=== PATIENT | male | born 1960 | race Caucasian/White ===

== ENCOUNTER 2020-10-10 15:49 | Inpatient (IN) | payer OTHER ==
[~2020-10-10] VITALS: Ht 182.9 cm; Wt 93.0 kg
[2020-10-10 15:53] VITALS: BP 105/78
--- NOTE | 2020-10-10 17:39 | NUR ---
LAB CALLED BLOOD RESULTS HAVE NOT BEEN REC'D IN YET AND THEY WERE SENT 40 MINUTES AGO. LAB STATES THEY HAVE REC'D IT IN AND WILL PROCESS IT.
[2020-10-10 17:52] LABS: ABSOLUTE NEUTROPHILS 9.8 thou/uL (1.4-8.2); BASOPHILS 0.5 % (0.0-2.0); EOSINOPHILS 0.1 % (0.0-3.0); HEMATOCRIT 37.2 % (42.0-52.0); HEMOGLOBIN 12.2 gm/dL (14.0-18.0); LYMPHOCYTES 1.4 % (24.0-44.0); MCH 28.5 pg (26.0-34.0); MCHC 32.9 g/dL (28.0-37.0); MCV 86.6 fL (80.0-100.0); RBC 4.29 mil/uL (4.50-6.00); RDW 14.6 % (10.5-14.5); WBC 10.2 thou/uL (4.0-11.0)
[2020-10-10 17:58] LABS: CALCIUM 9.5 mg/dL (8.5-10.1); POTASSIUM 3.7 mmol/L (3.5-5.1)
[2020-10-10 18:02] LABS: MAGNESIUM 1.6 mg/dL (1.8-2.4)
[2020-10-10 18:04] LABS: ALBUMIN 2.7 g/dL (3.4-5.0); DIRECT BILIRUBIN 1.1 mg/dL (<0.1-0.2)
[2020-10-10 18:20] LABS: PLATELET COUNT 88 thou/uL (150-400)
[2020-10-10 18:56] LABS: URINE BILIRUBIN NEGATIVE (Negative); URINE BLOOD TRACE (Negative); URINE CLARITY CLEAR; URINE COLOR YELLOW; URINE GLUCOSE-RANDOM* NEGATIVE (Negative); URINE KETONES NEGATIVE (Negative); URINE LEUKOCYTES-REFLEX TRACE (Negative); URINE NITRITE-REFLEX NEGATIVE (Negative); URINE PROTEIN (DIPSTICK) NEGATIVE (Negative)
[2020-10-10] MEDS ORDERED: HYDROCODON-ACE1 EAC7 PO (19:45)
[2020-10-10] MEDS ORDERED: CARBIDOPA-LEVO1 EAC9 PO (19:46)
[2020-10-10] MEDS ORDERED: ONDANSETRON HCL8 MG PO (19:47)
[2020-10-10] MEDS ORDERED: STIVARGA40 MG PO (19:49)
[2020-10-10] MEDS ORDERED: METOPROLOL SUCC25 M1 PO (19:49)
--- NOTE | 2020-10-10 21:10 | NUR ---
PT TRANSFER FROM ER ROOM 3 TO ER ROOM 4 SO THERE IS ROOM WITH A DOOR D/T BEING A PUI R/O
--- NOTE | 2020-10-10 21:33 | NUR ---
STEPHANY PRECIPITATOR OPERATOR AT BEDSIDE
[2020-10-11 06:16] LABS: HEMOGLOBIN 11.4 gm/dL (14.0-18.0); MCH 29.6 pg (26.0-34.0); MCHC 34.5 g/dL (28.0-37.0); MCV 85.8 fL (80.0-100.0); RBC 3.85 mil/uL (4.50-6.00); RDW 14.7 % (10.5-14.5); WBC 6.5 thou/uL (4.0-11.0)
--- NOTE | 2020-10-11 06:22 | NUR ---
Gave son an update pt's condition
[2020-10-11 06:23] LABS: MAGNESIUM 1.7 mg/dL (1.8-2.4); POTASSIUM 3.9 mmol/L (3.5-5.1)
--- NOTE | 2020-10-11 07:06 | EKG ---
[facility] [place] [address] ELECTROCARDIOGRAM REPORT Name: GABY BRENNAN Room #: 170-4 ADM IN M.R.#: [id number] Admission: 10/10/20 Attend Phys: Ivan Arias Discharge: Date of : 58 Report #: [id number] THIS REPORT FOR: cc: JULITO - Family physician unknown FAM - Family physician unknown Pablo Ny MD [facility] THIS REPORT FOR: //name// [facility] ED Test Date: 2020-10-10 Test Time: 16:16:36 Pat Name: GABY BRENNAN Department: Room: [facility] Gender: M [employer] Guard: : 1960 Requested By: Marilou Padilla Order Number: [id number] MD: Pablo Ny Measurements Intervals [place]ell Rate: 120 P: 44 NM: 146 QRS: -15 QRSD: 83 T: 72 QT: 288 QTc: 407 Interpretive Statements Sinus tachycardia Baseline wander in lead(s) V3 Compared to ECG 07/11/1997 08:25:00 Sinus rhythm no longer present Electronically Signed On 10-11-2020 7:06:34 SOLAR SYSTEM DESIGNER by Pablo Ny [email or web address] <ELECTRONICALLY SIGNED> By: Pablo Ny MD, FACC 10/11/20 0706 15 Pablo Ny MD, FACC /EPI
[2020-10-11 09:15] LABS: INR 1.2; PROTIME 12.2 Seconds (9.3-11.4)
[2020-10-11 11:33] VITALS: BP 158/88
--- NOTE | 2020-10-11 11:43 | NUR ---
ATTEMPTED TO CALL REPORT, WAS ADVISED THE NURSE WILL HAVE TO CB
[2020-10-11 11:44] VITALS: BP 141/82
[2020-10-11 12:32] VITALS: BP 164/119
[2020-10-11 15:01] VITALS: BP 133/83
[2020-10-11 20:00] VITALS: BP 155/84
[2020-10-12] VITALS (9 sets, daily range): BP systolic 132–155; BP diastolic 76–98
--- NOTE | 2020-10-12 03:07 | NUR ---
ASSUMED PATIENT CARE AT 1845. VITAL SIGNS STABLE WITH PATIENT HAVING NO COMPLAINTS OF PAIN OR NAUSEA. FULLY ORIENTED, PATIENT IS ABLE TO CALL APPROPRIATELY FOR NEEDS. BREATHING STABLE ON ROOM AIR EVIDENCED BY ASSESSMENTS AND SPOT OXYGENATION CHECKS. LARGE OUTPUT THROUGH COLOSTOMY AND FECAL INCONTINENCE. DECENT OUTPUT THROUGH EXTERNAL CATHETER. WOUND AND SKIN CARE PROVIDED WITH PATIENT TURNED FREQUENTLY AND BARRIER CREAM APPLICATION. SWALLOW PRECAUTIONS FOLLOWED. CONTINUE PLAN OF CARE.
[2020-10-12 05:45] LABS: HEMATOCRIT 31.5 % (42.0-52.0); HEMOGLOBIN 10.6 gm/dL (14.0-18.0); MCH 28.9 pg (26.0-34.0); MCHC 33.6 g/dL (28.0-37.0); MCV 86.1 fL (80.0-100.0); RBC 3.66 mil/uL (4.50-6.00); RDW 14.7 % (10.5-14.5); WBC 3.9 thou/uL (4.0-11.0)
[2020-10-12 06:40] LABS: CALCIUM 8.7 mg/dL (8.5-10.1); CREATININE 0.8 mg/dL (0.7-1.3); POTASSIUM 3.6 mmol/L (3.5-5.1)
--- NOTE | 2020-10-12 17:48 | NUR ---
PT CARE ASSUMED AT 0700. ASSESSMENTS CHARTED. MEDICATION CHARTED. LAC IV. CONDOM CATHETER. COLOSTOMY. PT STILL HAS MUCOUS EXPELLING FROM ANUS ON OCCASSION. PT REQUIRES FEEDING. PARKINSONS WITH MILD TREMORS.
[2020-10-13 04:20] VITALS: BP 154/90
--- NOTE | 2020-10-13 07:52 | NUR ---
PT ALERT AND ORIENTED. NO CONCERNS OVERNIGHT. NO FEVER, NO NAUSEA , SOB OR CHEST PAIN. WILL CONTINUE TO MONITOR . LIQUID STOOL FROM COLOSTOMY. WILL FOLLOW POC
[2020-10-13 08:49] VITALS: BP 153/93
--- NOTE | 2020-10-13 11:53 | NUR ---
ASSESSMENT-PT SAY HE LIVES WITH HIS SISTER IN A 2 STORY HOME. PT SAYS HE WAS WALKING ON HIS OWN AND GOING UP/DOWN THE STEPS TO BEDROOM. PT HAS A ROLLER WALKER BUT HE SAYS HE WAS NOT USING IT. PT HAS A TUB/SHOWER AND SON ASSISTS WITH HIS SHOWER. PT SAYS HE HAS NOT BEEN TO ANY REHAB AND HAS NOT HAD ANY HH SERVICES IN THE PAST. PT'S PCP IS DR LAUREN LEO. PT ALSO HAS A DTR IN THE AREA. THERAPIES ARE WORKING WITH PT AND CydneyN EMY HAS BEEN REQUESTED. FOLLOWING TO ASSIST WITH DC PLANNING.
[2020-10-13 12:14] VITALS: BP 144/82
--- NOTE | 2020-10-13 16:37 | NUR ---
I have reviewed the documentation by JYOTI CUELLAR from 10/13/20 to 10/13/20 and I concur with it. NOHEMI PATEL, PT, DPT
--- NOTE | 2020-10-13 17:12 | NUR ---
ASSUMMED PT CARE AT APPROXIMATELY 0700. PT A&O X4. ASSESSMENT CHARTED. FALL PRECAUTIONS IN PLACE. PT DENIES HAVING CHEST PAIN. PT DENIES HAVING SOB. PT STATED HE HAD L SHOULDER PAIN. PT RECEIVED ANALGESICS. PT STATED ANALGESICS HELPED RELIEVE PAIN. VITAL SIGNS STABLE. EDUCATED PT FAMILY AND PT ABOUT POC. PT AND PT'S FAMILY STATED UNDERSTANDING AND DENIED HAVING FURTHER QUESTIONS. PT COMFORTABLE. PT DENIES HAVING FURTHER CONCERNS. ENCOURAGED PT TO USE UTENSILS FOR MEALS. PT IS WEAK. ASSISTANCE NEEDED WITH MEALS.
[2020-10-13 17:50] VITALS: BP 140/82
[2020-10-13 20:00] VITALS: BP 154/88
[2020-10-14] VITALS (8 sets, daily range): BP systolic 138–152; BP diastolic 79–85
--- NOTE | 2020-10-14 03:36 | NUR ---
Pt. rested quietly during the night when checked on during frequent rounds. He offers no c/o pain. Colostomy bag is patent. Pt. turned and repositioned. Bed alarm is on.
--- NOTE | 2020-10-14 17:53 | NUR ---
PT CARE ASSUMED AT 0700. ASSESSMENTS CHARTED. MEDICATION CHARTED. LAC IV. CONDOM CATHETER. COLOSTOMY BAG; FIRM STOOLS LG AMOUNT OF GAS. LIDOCAINE PATCH ON LT SHOULDER. PT IS CAPABLE OF FEEDING SELF NOW. SPENT TIME UP IN CHAIR AND TRANSFERRED BACK TO BED WELL.
--- NOTE | 2020-10-15 04:53 | NUR ---
ASSUMED CARE OF PT AT 1900HR. PT AOX3-4 AND LETS NEEDS BE KNOWN. FALL PRECAUTION IN PLACE. PT TURNED Q2-3H. ABX TREATMENT CONTINUED. CONDOM CATH IN PLACE AND IS PATIENT. PT DENIES PAIN, NAUSEA OR SOA. ASSESSMENT CHARTED. PT RUNS SR ON TELE. PT WAS ABLE TO GET COMFORTABLE AND SLEEP PART OF THE SHIFT. VSS AND NO S/S OF ACUTE DISTRESS. WILL CONTINUE TO MONITOR.
[2020-10-15 05:00] VITALS: BP 141/79
[2020-10-15 05:10] LABS: HEMATOCRIT 32.4 % (42.0-52.0); HEMOGLOBIN 10.8 gm/dL (14.0-18.0); MCH 28.7 pg (26.0-34.0); MCHC 33.4 g/dL (28.0-37.0); MCV 85.8 fL (80.0-100.0); RBC 3.78 mil/uL (4.50-6.00); WBC 3.7 thou/uL (4.0-11.0)
[2020-10-15 05:25] LABS: CALCIUM 9.1 mg/dL (8.5-10.1); CREATININE 0.7 mg/dL (0.7-1.3); POTASSIUM 3.7 mmol/L (3.5-5.1)
[2020-10-15 08:20] VITALS: BP 139/97
[2020-10-15 11:33] VITALS: BP 151/83
[2020-10-15 15:10] VITALS: BP 142/79
--- NOTE | 2020-10-15 20:07 | NUR ---
ASSUMED CARE AT CHANGE OF SHIFT. ALERTX3 FROM HOME WIHT SISTER. HX OF THONG. DENIES SOB, DENIES CHEST PAIN. PAIN TO LEFT ARM WITH LIDOCAIN PATCH IN PLACE. CONDUM CATH AND COLOSTOMY IN PLACE. TAKES PILLS CRUSHED IN PUDDING. USES ROLLING WALKER AT HOME. AX1 WITH WALKER/GATE BELT. PROGRESSING TOWARDS GOALS. WILL DC TO RAHAB FRIDAY.
[2020-10-15 20:08] VITALS: BP 147/93
[2020-10-16 03:11] VITALS: BP 169/86
--- NOTE | 2020-10-16 04:32 | NUR ---
PATIENT AOX4 MAKES NEEDS KNOWN. PATIENT HAS A COLOSTOMY BAG, STOMA IS PINK AND MOIST. PATIENT ENCOURAGED FLUIDS.FALL PRECAUTION IN PLACE. PATIENT IN BED ASLEEP AT THIS TIME BREATHING REGULAR AND UNLABOURED.
[2020-10-16 07:37] VITALS: BP 146/88
--- NOTE | 2020-10-16 08:04 | NUR ---
PATIENT SEEN FOR REHAB CONSULT BY ANTWON MAGAÑA NP WITH DR. BOB, ON OCT 13. PATIENT IS A CANDIDATE FOR ACUTE REHAB/5N. IF PATIENT IS WANTING TO COME TO 5N, AUTH CAN BE REQUESTED WHEN MEDICALLY READY. THANK YOU FOR THIS REFERRAL.
[2020-10-16 08:05] VITALS: BP 139/79; BP 146/88
--- NOTE | 2020-10-16 10:33 | NUR ---
WOUND/OSTOMY NOTE; PT ALERT, COOPERATIVE, STATES HE DID NOT BRING OSTOMY SUPPLIES TO HOSP, COLOSTOMY POUCH W/ LOOSE EDGES, ON X 4 DAYS, CHANGED USING 2 PIECE AKIL SYSTEM CUT TO FIT, STOMA PINK VIABLE BUDDED W/ SOFT FORMED STOOL NOTED, BILAT BUTTOCKS WOUND, R ~2CM X 2CM X .3CM D, L BUTTOCKS AREA PINK, HEALING, ZGUARD APPLIED, PT STATES HE STILL HAS MUCOUS TYPE DRAINAGE FROM RECTUM PERIODICALLY, RECOMMEND TO KEEP AREA CLEAN, PROTECTIVE CREAM PRN, SUPPLIES PLACE AT , ABLE TO MOVE SELF IN BED, POSSIBLE TRANSFER TO [address] [place], [place] [address]AB TODAY, ENCOURAGED TO NOT SIT LONG PERIODS RECOMMENDATIONS; AKIL CUT TO FIT APPLIANCE, CHANGE Q3-5 DAYS AND PRN, ZGUARD BID TO BUTTOCKS AREA, OFF LOADING, PRESSURE RELIEF FLOOR COVERER APPRENTICE AWARE RECOMMENDATIONS;
[2020-10-16 12:00] VITALS: BP 139/79
--- NOTE | 2020-10-16 13:14 | NUR ---
I have reviewed the documentation by JYOTI CUELLAR from 10/16/20 to 10/16/20 and I concur with it. NOHEMI PATEL, PT, DPT
--- NOTE | 2020-10-16 15:03 | NUR ---
Patient evaled for 5N and accepted. Updated son Cornell who is in agreement with plan. Patient agreeable.
--- NOTE | 2020-10-16 16:11 | NUR ---
PATIENT SEEN BY PATIENT CARE LIAISON AND VERBAL AND WRITTEN INFORMATION SHARED ABOUT ACUTE REHAB. SON, WILNER, CALLED FOR BRINGING CLOTHING FOR REHAB STAY AND LIST OF ITEMS ALONG WITH LIAISON'S CARD WAS TEXTED TO SON. PATIENT TO ADMIT THIS AFTERNOON.
--- NOTE | 2020-10-16 18:37 | NUR ---
PT CARE ASSUMED AT 0700. ASSESSMENTS CHARTED. MEDICATION CHARTED. LAC IV. CONDOM CATHETER. COLOSTOMY. WOUND RT BUTTOCKS; Z-GUARD. PARKINSON'S; MILD TREMORS. PT DISCHARGED TO REHAB-5N. TELEMETRY D/C'D. IV D/C'D.
--- NOTE | 2020-10-17 08:07 | HC ---
[facility] [place] [address] [place] [address] CONSULTATION Name: GABY BRENNAN Room #: 209-P [facility] IN .R.#: [id number] Admission: 10/10/20 Attend Phys: Eugeneedwin Fernando Lorilarisa Discharge: 10/16/20 Date of : 58 Report #: [id number] THIS REPORT FOR: cc: FAM - Family physician unknown FAM - Family physician unknown Vargas Delacruz MD ~ DATE OF SERVICE: 10/11/2020 REASON FOR CONSULTATION: Metastatic colorectal cancer. HISTORY OF PRESENT ILLNESS: The patient is a 60-year-old male, not a good historian, who has a history of colorectal cancer diagnosed last year. He initially had a diverting colostomy and then in the past received FOLFOX and FOLFIRI chemotherapy, recently he has had several days of Stivarga. He was brought to the hospital, reported by family member for fever of 103 the evening before, also recent nausea and vomiting and diarrhea and also macular rash. At this time in the hospital, the patient does not really have a headache, is very soft spoken, no nausea, does have some abdominal discomfort related to the diarrhea. Has had some generalized weakness. He really cannot tell me a whole lot. He does talk about the rash. He denies, but I am not sure I believe him. Denies any significant pain except for abdominal discomfort, any nausea, any blood in his urine or stool, any arm or leg swelling. Does seem to be aware of skin rash of perhaps several days' duration. PAST MEDICAL HISTORY: Notable for Parkinson's, also diagnosed last year the metastatic what Dr. Nunes described as stage IV rectal cancer diagnosis near obstructing, who had a diverting colostomy, then has had FOLFOX and FOLFIRI chemotherapy, most recently Stivarga. She had seen him about 2 weeks ago. She was not sure if he had begun, but it sounded like ____. He also had Y90 to the liver about 30 days ago. 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 No tobacco, recent alcohol or street drugs. FAMILY HISTORY: ____ reports I think he has had 2 daughters and a sister, no specific illnesses. LABORATORY DATA: Lab work here is notable for BUN of 19, creatinine 1.0. Hemoglobin 11.4; platelet count 88,000 yesterday, today is 70,000; white count of 6.5; sed rate of 65. Chest x-ray without acute process. PHYSICAL EXAMINATION: GENERAL: The patient appears his stated age. [facility] [address] [place] [address] CONSULTATION Name: GABY BRENNAN Room #: 209-P [facility] IN [facility].#: [id number] Admission: 10/10/20 Attend Phys: Ivan Arias Discharge: 10/16/20 Date of : 58 Report #: [id number] VITAL SIGNS: Height is reported 6 feet or 182.88 cm, weight 230 pounds or 104.3 kilograms. Blood pressure is 143/79, 95% O2 sat, respirations 20, pulse 81, temperature yesterday late afternoon was 101.8. MOOD: The patient appears to be pleasant, though quiet. NEUROLOGIC: Not sure he is the best historian. Face looks symmetrical. Moves arms slowly, can wiggle his toes. LUNGS: Appear to be clear without significant rhonchi, stridor or wheezes. Has symmetric unlabored expansion. HEART: Regular rate. LYMPHATICS: No enlarged lymph nodes in the supraclavicular, cervical, axillary or inguinal region. ABDOMEN: Slightly protuberant. Ostomy in place. EXTREMITIES: Without clubbing or cyanosis. There may be some trace edema. SKIN: Has may be a mild macular rash on the upper chest. MEDICATIONS: At this time in the hospital currently include Zosyn 3.375 grams IV q. 8, ipratropium and albuterol 3 mL respiratory therapy, carbidopa/levodopa 1 tab t.i.d., famotidine 20 b.i.d., hydrocodone p.r.n., Tylenol p.r.n., Zofran p.r.n. ASSESSMENT AND PLAN: 1. Stage IV colorectal cancer diagnosis. Recently on Stivarga, would hold this, this may be contributing to his diarrhea. It can rarely cause fever, but need to rule out infectious etiologies. We will get records from Dr. Blanca Nunes, though I did talk with her, though she was not in the office at this time. 2. Fever, diarrhea, nausea and possible sepsis. Agree with broad-spectrum antibiotics. Cultures pending. 3. Hydration, intravenous fluids. 4. Anemia, mild thrombocytopenia, mostly stable ____, with regards to the drop in hemoglobin, we will check coags, noted D-dimer is elevated. 5. History of Parkinson's. Medications per others. We will follow with you. <ELECTRONICALLY SIGNED> By: Vargas Delacruz MD 10/17/2007 0832 13 Vargas Delacruz MD /nt
== END 2020-10-16 16:43 | DRG 375 ==
LOC: ER 15:49 → 2N 19:25 → EROBS 19:25 → 2N 10-11 12:16
PROVIDERS: Emergency Medicine; Hospitalist; Internal Medicine Hematology & Oncology; Nurse Practitioner Family; ADMIT Hospitalist; ATTEND Hospitalist
DX: C19 Malignant neoplasm of rectosigmoid junction (principal); E87.2 Acidosis; R65.10 Systemic inflammatory response syndrome (SIRS) of non-infectious origin without acute organ dysfunction; E86.0 Dehydration; G20 Parkinson's disease; D64.9 Anemia, unspecified; D69.6 Thrombocytopenia, unspecified; Z20.828 Contact with and (suspected) exposure to other viral communicable diseases; Z93.3 Colostomy status; Z79.899 Other long term (current) drug therapy; Z92.21 Personal history of antineoplastic chemotherapy
CPT/HCPCS: 10081

== ENCOUNTER 2020-10-16 14:21 | Inpatient (IN) | payer OTHER ==
[~2020-10-16] VITALS: Ht 188 cm; Wt 91.2 kg
--- NOTE | ~2020-10-16 | HC ---
[facility] [place] [address] CONSULTATION Name: GABY BRENNAN Room #: 510-P ADM IN .R.#: [id number] Admission: 10/16/20 Attend Phys: Antoine Mata MD Discharge: Date of : 58 Report #: [id number] THIS REPORT FOR: cc: FAM - Family physician unknown FAM - Family physician unknown Billy Feldman MD ~ DATE OF SERVICE: 10/26/2020 HISTORY OF PRESENT ILLNESS: This is a 60-year-old male patient who was evaluated by me for the possibility of Parkinson's disease. The patient is not a reliable historian. I reviewed the patient's record and he was admitted to the hospital and subsequently, he was transferred to the rehab unit. I called the patient's son and was able to reach him. He gives a history that he was admitted to the [facility] in December of this year and he was diagnosed with colon carcinoma as well as Parkinson disease. He was having tremor that time, but they put him on carbidopa/levodopa and that basically resolved his tremor. He was supposed to follow up with them, but he never did. He was admitted with nausea and vomiting at this time and subsequently was transferred to the rehab. He also has been seen by multiple other consultants this time including human resources benefits specialist. REVIEW OF SYSTEMS: Positive for colectomy. Oncology is following up this patient. He had some shoulder pain. He does have hypokinesia. He talks very softly, the son says it is something new. He was debilitated when he came in because of nausea and vomiting. That was his 14-point review of system which is relevant, otherwise it is pretty extensive. PAST MEDICAL HISTORY: Positive for the diagnosis of Parkinson's disease. FAMILY HISTORY: Unremarkable. SOCIAL HISTORY: The patient's legal guardian is his son and I talked to him. The patient does not drink alcohol or smoke according to him. PHYSICAL EXAMINATION: Indicates he is alert. He is responsive. It is difficult to understand. I do not how long his speech is going like this. His cranial nerve examinations appear unremarkable, but he has a blank facies. He moves for all 4 extremities. There does not appear to be any tremor. He did not cooperate that much with the sensory examination. I tried to ask him to do [id number]. I think he did alright, but he did it very slowly. He does have somewhat unusual scar and has ____ but I do not know what to make out of it. He does not appear to be in any respiratory difficulty. His blood pressure is 150/86, pulse rate is 103. [address] [address] CONSULTATION Name: GABY BRENNAN Room #: 510-P [facility] IN M.R.#: [id number] Admission: 10/16/20 Attend Phys: Antoine Mata MD Discharge: Date of : 58 Report #: [id number] LABORATORY DATA: Last time, his white count was low at 3.9. His magnesium is also low at one time, his bilirubin was high. He did not have any imaging studies here. IMPRESSION AND PLAN: He has a history of Parkinson's disease. We will try to get the record from [facility] to see what the workup, especially the imaging studies of the brain they did. If they did MRI and a CAT scan, there may not be any need to repeat that and in fact there may not be much need to repeat anything. Otherwise, he may need the workup of the brain and/or spine and some other workup. Presently, I will suggest continuing carbidopa and levodopa. I will ask for the records and further recommendation will be dependent upon what records we get from [facility] and what workup they have done in the past. Dr. Ballard will follow up this patient with you from tomorrow. I spent more than 50 minutes of time taking care of this patient and majority of the time was spent counseling and coordinating and I talked to both the patient's son and the patient himself. Thank you very much for this referral. By: 1855 0043 Billy Feldman MD /romulo
[~2020-10-16 14:21] MED LIST: CARBIDOPA-LEVO1 EAC9 PO; HYDROCODON-ACE1 EAC7 PO; METOPROLOL SUCC25 M1 PO; ONDANSETRON HCL8 MG PO; STIVARGA40 MG PO
[2020-10-16 16:40] VITALS: BP 153/93
--- NOTE | 2020-10-16 18:07 | NUR ---
PATIENT ADMITTED TO ROOM AT APPROX 1640 AFTER REPORT GIVEN PER GABY DENNISON. PT ALERT AND PLEASANT WITH FLAT AFFECT, TURNS IN BED WITH ASSIST, AND PHOTOS WERE TAKEN OF DEEP PURPLE AREAS AT COCCYX, NON-BLANCHING, AND SHEARED/BLISTERED AREA AT RT BUTTOCK. DISCUSSED WITH PATIENT THE IMPORTANCE OF TURNING, AND ALERTED VESSEL SLAG WORKER OF APPEARANCE OF WOUND. WOUND CARE CONSULT WAS ORDERED ALREADY PER VESSEL SLAG WORKER, AND SO WAS ALINA MATTRESS AND DUNCAN CUSHION. PATIENT DENIES PAIN AT THE BUTTOCKS AREA, BUT DOES REPORT PAIN AT 5/10 IN LEFT SHOULDER, STATING THAT THE lIDOCAINE PATCH "IS HELPING SOME". PATCH REMAINS IN PLACE TO THIS AREA CURRENTLY. NOTED THAT PT IS ON NECTAR THICKENED LIQUIDS, AND PT IS SITTING AT 90 DEGREES FOR INTAKE WITH INITIAL SUPERVISION. PT HAS SOME COUGHING WITH AND WITHOUT ORAL INTAKE. COUGH IS DRY AND LUNGS ARE CLEAR TO DIMINISHED. COLOSTOMY IS INTACT WITH YELLOW SOFT STOOL, AND CONDOM CATHETER WAS REMOVED TO ALLOW SKIN TO BREATHE, GLANS WAS ALSO PURPLISH IN COLOR. WILL RE-ASSESS SKIN AND RE-APPLY CONDOM CATHETER IF SKIN IMPROVES LATER THIS EVENING.
[2020-10-16 19:36] VITALS: BP 143/90
--- NOTE | 2020-10-17 04:24 | NUR ---
assumed care approx 1900 evening 10/16. pt lying in bed with head of bed elevated at change of shift. pt with very soft voice difficult to hear at times. fitted with condom catheter at hs. pt took hs med with applesauce tolerating well. pt sleeping off and on. bed alarm on and call light in reach. will continue to monitor.
[2020-10-17 05:39] LABS: HEMATOCRIT 33.6 % (42.0-52.0); HEMOGLOBIN 11.1 gm/dL (14.0-18.0); MCH 28.5 pg (26.0-34.0); MCHC 32.9 g/dL (28.0-37.0); MCV 86.7 fL (80.0-100.0); RBC 3.87 mil/uL (4.50-6.00); RDW 15.3 % (10.5-14.5); WBC 3.4 thou/uL (4.0-11.0)
[2020-10-17 05:51] LABS: CALCIUM 9.1 mg/dL (8.5-10.1); CREATININE 0.8 mg/dL (0.7-1.3); POTASSIUM 3.5 mmol/L (3.5-5.1)
[2020-10-17 08:00] VITALS: BP 127/71
--- NOTE | 2020-10-17 09:58 | NUR ---
chart review. cm visited with brad at bedside, cm cont to wear face mask and shield during visit. brad is soft and slow spoken with verbal communication. intro to cm, team meeting and dcp. note per chart, pt lives at home with sister lorenza, son helps him at home with bathing. normally able to walk up and down 15 + steps to bedroom. has walker with seat and breaks. no hh or rehab in past.
--- NOTE | 2020-10-17 12:27 | NUR ---
Nutrition: pt admitted to rehab unit. Dx parkinsons, lactic acidosis, dehydration. Hx met colon CA with colectomy/colostomy earlier this year. Consult received related to dysphagia and modified diet need. ST following for risks of aspiration and diet just upgraded from nectar thick to thin liquids. Continues to requires mechanical soft consistency. Missing intake records but 75-100% of meals documented on 10/12 and 10/13. Observed pt eating lunch fairly well although slowly today. Supplements changed to ensure BID from magic cup/ensure pudding now that pt allowed thin liquids. Will continue as pt enjoys and also until further intake trends identified. Low risk. weight hx. BMI 30, obesity class 1.
--- NOTE | 2020-10-17 12:42 | NUR ---
team meeting, reccomendation: getting low air mattress. new colostmy. bathing all max assistance. son was helping at home and how much help he was getting. max for bed mobility. cont to work with [employer]rpay. mech soft with thin liquid no straws. nursing reported 1 step to enter, only goes up 3 x week to shower. sleeps on main level on couch/sofa. stair and gait he needs to cont work with him. re team dc on with HH nursing only rt he only has medicaid.
--- NOTE | 2020-10-17 18:08 | NUR ---
ASSUMED CARE OF PT AT 0700. PT IS A&OX4 AND VITAL SIGNS ARE STABLE. PT DENIES PAIN AND PARTICIPATED IN SCHEDULED THERAPIES. PT SPEAKS VERY SOFTLY AND IS DIFFICULT TO UNDERSTAND. PT DOES WELL IN QUIET ENVIRONMENT WITH EXTRA TIME TO COMMUNICATE, PT MAY BENEFIT FROM [facility] FOR COMMUNICATION, WILL COMMUNICATE WITH ST. PT REPOSITIONED FREQUENTLY THROUGHOUT SHIFT. MEDICATIONS CRUSHED IN APPLESAUCE PER ST. NO CONCERNS WITH SWALLOWING NOTED THIS SHIFT. REPORTS OF RED MUCOUS DISCHARGE FROM RECTUM THIS SHIFT, H&H STABLE, PROVIDERS AWARE, NURSING TO MONITOR DISCHARGE. FALL PRECAUTIONS IN PLACE AND NURSING WILL CONTINUE TO MONITOR.
[2020-10-17 19:45] VITALS: BP 146/81
--- NOTE | 2020-10-18 00:12 | NUR ---
PT ALERT AND ORIENTED X 4. TRANSFERRED TO W/C AND THEN TO TOILET AT START OF SHIFT WITH ASSIST X 1. COLOSTOMY INTACT WITH SOFT UNFORMED YELLOW STOOL. VOIDED X 1 PER URINAL. CONDOM CATH PLACED AT HS. PT TAKES MEDS CRUSHED IN APPLESAUCE WITHOUT DIFFICULTY. PT DENIES PAIN OR DISCOMFORT. BED ALARM ON FOR SAFETY. PT APPEARS TO BE SLEEPING ON HOURLY ROUNDS. TURNED Q2H.
[2020-10-18 08:00] VITALS: BP 107/67
--- NOTE | 2020-10-18 09:26 | NUR ---
OSTOMY CARE; PT ALERT, COOPERATIVE, POUCH SOILED, CHANGED USING 2 PIECE AKIL SYSTEM CUT TO FIT. STOMA PINK, VIABLE, BUDDED, W/ SOFT FORMED YELLOWISH BROWN STOOL. ADAPT RING APPLIED UNDER WAFER, SUPPLIES AT BS, WILL CONT TO FOLLOW PRN RECOMMENDATIONS; CHANGE POUCH Q 3-5 DAYS AND PRN, AKIL 2 PIECE SYSTEM, ADAPT RING UNDER WAFER TITLE I DIRECTOR AWARE
--- NOTE | 2020-10-18 11:04 | NUR ---
ASSUMED CARE OF PT AT 0700. PT IS A&OX4 AND VITAL SIGNS ARE STABLE. PT REPORTS PAIN TO LEFT SHOULDER, MANAGED WITH LIDOCAINE PATCH APPLIED TO THE AREA. PT PARTICIPATING IN SCHEDULED THERAPIES. COLOSTOMY APPLIANCE CHANGED BY OSTOMY NURSE. IV REMOVED THIS SHIFT. FALL PRECAUTIONS IN PLACE AND NURSING WILL CONTINUE TO MONITOR.
--- NOTE | 2020-10-18 11:56 | NUR ---
CM PASSED ON TO AND BEDSIDE NURSE TO HAVE THERAPY REACH OUT TO ALBARO DARBY TO SET UP TRAINING WITH THERAPY PRIOR TO DC HOME. SON WILNER FEELS HE WILL NOT NEED NURSE RT HE WILL NOT ALWAYS BE HOME, HE WILL BE GOING WITH SISTER WHEN SHE LEAVES THE HOUSE DURING THE DAY.
[2020-10-18 19:58] VITALS: BP 145/88
--- NOTE | 2020-10-19 03:03 | NUR ---
PATIENT TOLERATING TURNS WITH PILLOWS UNDER BOTH SHOULDERS. EXTERNAL CATH PATENT, EXTRA SIPS OF COLD WATER TOLERATED WHEN GIVEN, TOLERATING MEDS CRUSHED IN APPLESAUCE. NO C/O PAIN EXCEPT NEED FOR PILLOW UNDER LEFT SHOULDER.
[2020-10-19 06:05] LABS: HEMATOCRIT 32.1 % (42.0-52.0); HEMOGLOBIN 10.7 gm/dL (14.0-18.0); MCH 28.9 pg (26.0-34.0); MCHC 33.4 g/dL (28.0-37.0); MCV 86.5 fL (80.0-100.0); RBC 3.72 mil/uL (4.50-6.00); RDW 15.2 % (10.5-14.5); WBC 2.7 thou/uL (4.0-11.0)
[2020-10-19 08:00] VITALS: BP 134/74
--- NOTE | 2020-10-19 08:39 | HC ---
[facility] [place] [place] [address] CONSULTATION Name: GABY BRENNAN Room #: 510-P [facility] IN M.R.#: [id number] Admission: 10/16/20 Attend Phys: Antoine Mata MD Discharge: Date of : 58 Report #: [id number] THIS REPORT FOR: cc: JULITO - Family physician unknown FAM - Family physician unknown Fredi Waldron MD ~ DATE OF SERVICE: 10/18/2020 ENDOCRINE CONSULTATION NOTE CONSULTING PHYSICIAN: Dr. Mata. REASON FOR CONSULTATION: Hyperthyroidism. HISTORY OF PRESENT ILLNESS: This is a 60-year-old male patient whose medical background is noted for recent issues with dehydration, sepsis in the setting of stage IV colon cancer. He was recently admitted to [facility] due to issues of nausea, lethargy, diarrhea and vomiting. The patient was admitted to the rehab unit on 10/16/2020 for the issue of generalized decline. During his hospital stay, the patient was noted to have a suppressed TSH value. On further questioning, the patient explained that he does not have any prior personal or family history of thyroid disease. While he has been generally lethargic, fatigued and with poor appetite, this has not correlated with a significant body weight change. He has not experienced distinct issues with palpitations, tremors, anxiety, or heat intolerance. The patient does not appreciate neck fullness, pain, discomfort or compressive symptoms. REVIEW OF SYSTEMS: CONSTITUTIONAL: Lethargy, fatigue, tiredness. No significant weight changes. HEENT: Negative for sore throat, ear pain, or sinus pain. PULMONARY: Negative for shortness of breath, cough or hemoptysis. CARDIAC: Negative for palpitations, syncope, chest pain. GASTROINTESTINAL: Noted for recent difficulties with nausea, vomiting and diarrhea that have subsided at this point. NEUROLOGY: Negative for loss of consciousness, seizure activity. Otherwise, review of systems is noncontributory unless mentioned in HPI. PAST MEDICAL HISTORY: 1. Cancer, stage 4, status post colectomy with a colostomy. 2. Parkinson's disease. 3. Thrombocytopenia. 4. Anemia of chronic disease. [facility] [address] [place] [address] CONSULTATION Name: ANUGABY Kellie Room #: 510-P [facility] IN M.R.#: [id number] Admission: 10/16/20 Attend Phys: Antoine Mata MD Discharge: Date of : 58 Report #: [id number] 5. Recent issues with lactic acidosis and dehydration. CURRENT MEDICATIONS: Include acetaminophen 650 mg q. 6 hours p.r.n., Colace 100 mg b.i.d. p.r.n., lidocaine patch, metoprolol 25 mg daily, Zosyn q. 6 hours p.r.n. 4 mg. ALLERGIES: No known drug allergies. FAMILY HISTORY: Noncontributory. SOCIAL HISTORY: Lives with his sister. Denies the use of alcohol, tobacco or illicit drugs. PHYSICAL EXAMINATION: GENERAL: male patient who appears lethargic, somewhat somnolent, but not in apparent pain or distress. VITAL SIGNS: Blood pressure is 107/67 mmHg, heart rate is 98 beats per minute, respirations 22 per minute, temperature 36.5 degrees Celsius. CONSTITUTIONAL: The patient appears somnolent, a bit lethargic, but not in pain or distress. HEENT: Anicteric sclerae. Intact extraocular motions. NECK: Supple, without JVD, carotid bruits or lymphadenopathy. I do not appreciate thyromegaly. CHEST: Noted for moderate air entry with bilateral rhonchi. No wheezes or crackles. HEART: Regular rate and rhythm without murmurs or gallops. ABDOMEN: Soft, lax. No guarding. Active bowel sounds. Colostomy is noted. EXTREMITIES: Lower extremity exam, trace ankle edema bilaterally. No skin breaks or ulcerations. NEUROLOGIC: Somnolent, lethargic. Moves all extremities spontaneously. PSYCHIATRIC: Flat mood and affect, but answers questions appropriately. LABORATORY RESULTS: Sodium 138, potassium 3.5, chloride 103, CO2 of 27, anion gap 8, BUN 14, creatinine 0.8, glucose 98, AST 40, total bilirubin 2.0, calcium 9.1, magnesium 1.7, alkaline phosphatase 215, ALT 11, total protein 7.0, albumin 2.7, EGFR 98. Lactic acid 1.1. Total CPK 27. INR 1.2. White blood count 3.4, hemoglobin 11.1, hematocrit 33.6, platelets 107. TSH 0.034, ferritin 282, folate 15. Vitamin B12 of 1340. Vitamin D 33.8. ASSESSMENT AND PLAN: 1. Hyperthyroidism. As noted above, the patient was found to have a suppressed TSH. However, he appears to be mostly euthyroid from the clinical standpoint. This very well could be consistent with a sick euthyroid outlook especially in the setting of his extensive medical issues. That said, I will seek to further [facility] [address] [place] [address] CONSULTATION Name: GABY BRENNAN Room #: 510-P ADM IN M.R.#: [id number] Admission: 10/16/20 Attend Phys: Antoine Mata MD Discharge: Date of : 58 Report #: [id number] assess his thyroid state with free T4 and free T3 levels. If these proved to be consistent with a sick euthyroid outlook, then I would not have further therapeutic recommendations and would rather allow this patient to stabilize with the intent of monitoring her thyroid function studies again in the outpatient setting in 4-6 weeks. However, if the free thyroid hormone indices proved to be compatible with hyperthyroidism, then further assessment with serology studies and possibly a thyroid ultrasound will be pursued. I certainly appreciate this consultation by Dr. Mata. <ELECTRONICALLY SIGNED> By: Fredi Waldron MD 10/19/20 0839 [id number] Fredi Waldron MD /nt
--- NOTE | 2020-10-19 13:06 | NUR ---
ASSUMED CARE OF PT AT 0700. PT IS A&OX4 AND VITAL SIGNS ARE STABLE. PT REPORTS PAIN TO RIGHT SHOULDER, MANAGED WITH PO MEDICATIONS AND LIDOCAINE PATCH. PT PARTICIPATED IN SCHEDULED THERAPIES. WOUND TO SACRUM CLEANED AND Z-GUARD APPLIED TO THE AREA PER ORDERS. PT ENCOURAGED TO FREQUENTLY REPOSITION WHEN UP IN CHAIR. FALL PRECAUTIONS IN PLACE AND NURSING WILL CONTINUE TO MONITOR.
--- NOTE | 2020-10-19 16:13 | NUR ---
Pt'S SON WILNER TO COME IN FOR FAMILY TRAINING AT 1300 ON 10/23/2020
[2020-10-19 20:07] LABS: THYROID PEROXIDASE AB 10 IU/mL (0-34)
[2020-10-19 20:31] VITALS: BP 134/85
--- NOTE | 2020-10-19 23:47 | NUR ---
PT ALERT AND ORIENTED X 4. COLOSTOMY INTACT WITH LARGE AMT YELLOW FORMED STOOL. COLOSTOMY BAG CHANGED. CONDOM CATH APPLIED AT HS. PT TAKES MEDS CRUSHED IN APPLESAUCE WITHOUT DIFFICULTY. PT DENIES PAIN OR DISCOMFORT. BED ALARM ON FOR SAFETY. PT APPEARS TO BE SLEEPING ON HOURLY ROUNDS.
[2020-10-20 07:30] VITALS: BP 131/80
--- NOTE | 2020-10-20 09:21 | PLAN ---
[facility] [place] [address] REHAB UNIT PLAN OF CARE Name: GABY BRENNAN Room #: 510-P ADM IN M.R.#: [id number] Admission: 10/16/20 Attend Phys: Antoine Mata MD Discharge: Date of : 58 Report #: [id number] THIS REPORT FOR: cc: JULITO - Family physician unknown JULITO - Family physician unknown Antoine Mata MD ~ CC: Antoine VILA unknown DATE OF SERVICE: 10/18/2020 PROGRESS NOTE/OVERALL PLAN OF CARE SUBJECTIVE: The patient was seen today in followup. He was seen during his speech therapy where he is working on localization and trying to increase his amplitude. He does have the Parkinson's disease and tends to talk quite very softly. He is pleasant, in good spirits. He is working in therapies with transfers at a standby assistance level. He is ambulating up to 65 feet contact guard with a front-wheeled walker. In occupational therapy, lower body dressing is max assist with upper body dressing, max assist. He is again working in speech therapy. He had a video swallow study with recommendations for mechanical, soft, thin liquids. They are working on language with him with his dysarthria and he does have moderate cognitive deficits as well. ASSESSMENT: 1. Parkinson's disease. 2. Lactic acidosis with dehydration. 3. Dysphagia. 4. Stage IV colon cancer with colostomy. 5. Thrombocytopenia. 6. History of left shoulder pain with limited range of motion. PLAN: The overall plan of care is based on the preadmission screen and information garnered from therapy assessments. 1. Estimated length of stay is probably at least 10-14 days. We have set a tentative discharge date for him next 10/27/2020. 3. Medical prognosis is reasonably good. 4. Anticipated interventions includes the interdisciplinary acute inpatient rehabilitation program. 5. Anticipated functional outcomes would be for the patient to become modified independent with basic transfers, mobility and ADL issues. He did previously have some assistance with showering and some dressing assistance. 6. Discharge destination would be back home where he lives with his sister. He does have other family member involvement as well. 7. Expected therapy by discipline includes PT, OT and speech 1 hour per day each five days a week throughout the duration of the acute inpatient [address] [address] REHAB UNIT PLAN OF CARE Name: GABY BRENNAN Room #: 510-P [facility] IN [facility]#: [id number] Admission: 10/16/20 Attend Phys: Antoine Mata MD Discharge: Date of : 58 Report #: [id number] rehabilitation stay. The patient's prognosis for significant practical improvement within a reasonable period of time appears good. Given the patient's complex medical condition and risk of further medical complications, rehabilitation services could not be safely provided at a lower level of care such as a shelter facility. <ELECTRONICALLY SIGNED> By: Antoine Mata MD 10/20/20 0921 [id number] Antoine Mata MD /nt
--- NOTE | 2020-10-20 09:21 | H ---
[facility] [place] [address] HISTORY AND PHYSICAL Name: GABY BRENNAN Room #: 510-P ADM IN M.R.#: [id number] Admission: 10/16/20 Attend Phys: Antoine Mata MD Discharge: Date of : 58 Report #: [id number] THIS REPORT FOR: cc: JULITO - Family physician unknown FAM - Family physician unknown Antoine Mata MD ~ CC: Antoine VILA unknown DATE OF SERVICE: 10/16/2020 HISTORY AND PHYSICAL ADDENDUM BRIEF HISTORY: Please see the full documentation and agree. He is a 60-year-old male with a prior history of colon cancer stage 4, diagnosed this past December, for which he underwent a colectomy and colostomy and was started on chemotherapy. He has Parkinson's disease and is on Sinemet and has significant bradykinesia and some cogwheeling. He has functional deficits with his Parkinson's disease. His course was worsened by fever of 103. He was started on Zosyn and given IV fluids for dehydration. Noted to have lactic acidosis. He also was noted to have thrombocytopenia. He does have left shoulder pain with limited range of motion and evidence of degenerative arthritis. He has been admitted for acute in-hospital inpatient rehabilitation. As far as his prior medical history, social history, allergies, habits, please see the history and physical. MEDICATIONS: See the MAR. REVIEW OF SYSTEMS: No complaints of chest pain or shortness of breath. He has the colostomy. He does have some left shoulder pain as noted. Please see the full review of systems as documented. PHYSICAL EXAMINATION: GENERAL: He is a pleasant 60-year-old white male, appeared somewhat older than stated age. VITAL SIGNS: Vitals are as noted. Last recorded temperature 36.6, pulse 87, respirations 18, blood pressure 127/71. He does have some evidence of masked facies. HEENT: Otherwise appeared to be benign. He has soft spoken voice. Somewhat dysarthric. CHEST: Some decreased at the bases. CARDIOVASCULAR: Regular rate and rhythm. ABDOMEN: He has colostomy. Bowel sounds are positive, nontender. GENITOURINARY AND RECTAL: Otherwise deferred. He has an external catheter in place for urinary drainage. [facility] [address] [place] [address] HISTORY AND PHYSICAL Name: GABY BRENNAN Room #: 510-P [facility] IN [facility].#: [id number] Admission: 10/16/20 Attend Phys: Antoine Mata MD Discharge: Date of : 58 Report #: [id number] NEUROMUSCULOSKELETAL: He has decreased range of motion of the left upper extremity at the shoulder. He does have some evidence of rigidity of both upper extremities with some cogwheeling at the wrists. There is some mild resting tremor. Strength is probably a grade 3+/5 except for that left shoulder. No distal lower extremity edema. He has been min assist to transfer and is ambulating a short distance min assist with a front-wheeled walker. ASSESSMENT: A 60-year-old male with the following problem list: 1. Parkinson's disease. 2. Lactic acidosis with dehydration. 3. Dysphagia. 4. Stage 4 colon cancer with colostomy. 5. Thrombocytopenia. 6. Left shoulder pain with limited range of motion. PLAN: The patient has been admitted for acute in-hospital inpatient rehabilitation. He will be involved in the interdisciplinary acute inpatient rehabilitation program with the goal of maximizing his functional independence, so he can hopefully return back to his prior living situation. Please see the full documentation. His diagnosis is appropriate. He meets the medical necessity criteria. He does have the tolerance for therapies and has appropriate discharge goals back to the home setting. We will be having the specialty development consultant physicians continue to follow regarding his multiple medical issues. He has the tolerance for therapies. He is motivated and the goals to return back to the home setting. He did not utilize gait aids, although he has a walker and he does have family that are closely involved. Potential barriers would include his multiple medical comorbidities and decreased functional status. Prognosis should be reasonably good with estimated length of stay probably around 10 days to 2 weeks pending progress. <ELECTRONICALLY SIGNED> By: Antoine Mata MD 10/20/20 0921 [id number] Antoine Mata MD /nt
--- NOTE | 2020-10-20 12:43 | NUR ---
ASSUMED CARE AT 0700. PT IS ALERT AND ORIENTATED, SOFT SPOKEN, WITH COMPLAINS OF L SHOULDER PAIN. SLEPT WELL. COLOSTOMY INTACT WITH SMALL AMOUNT OF STOOL. OSTOMY CART ORDERED FOR SUPPLIES. PARTICIPATING IN THERAPY. ST AT BEDSIDE FOR LUNCH, WITH NOTICEABLE COUGHING INTERMITTENTLY, CONT WITH MEDS CRUSHED WITH PUREE. BUTTOCK WOUND HEALING AND Z GUARD APPLIED. BRENDA HOSE TO BLE EDEMA. NO OTHER CONCERNS, WILL CONT TO MONITOR.
[2020-10-20 20:00] VITALS: BP 136/68
--- NOTE | 2020-10-21 02:21 | NUR ---
assumed care approx 1900 evening 10/20. pt sitting in recliner at change of shift. pt voided per urinal before hs. pt took hs meds crushed in applesauce. pt fitted with external catheter. pt appears to be sleeping soundly. bed alarm on and call light in reach. will continue to monitor.
[2020-10-21 07:19] VITALS: BP 117/69
--- NOTE | 2020-10-21 09:41 | NUR ---
ASSUMED CARE AT 0700. PT REPORTED DID NOT SLEEP TOO WELL DUE TO INTERMITTENT COUGHING. DENIES ANY SHORT OF AIR. LUNGS CLEAR AND DIM AT THE BASES. ALSO NOTED COUGHING OCCASIONALLY WITH EATING. PER ST PT IS OK WITH THIN LIQUID PER SWALLOW STUDY AND CONT TO CRUSH MEDS IN APPLE SAUCE. PAIN IS STABLE TO R SHOULDER AND LIDOCAINE PATCH APPLIED TO SITE. PARTICIPATING IN THERAPY. COLOSTOMY INTACT WITH SMALL AMOUNT OF STOOL. CONT TO MONITOR.
[2020-10-21 20:15] VITALS: BP 120/73
[2020-10-21 23:06] LABS: THYROID STIMULATING IG < 0.10 IU/L (0.00-0.55)
--- NOTE | 2020-10-22 02:06 | NUR ---
ASSUMED PT CARE AT 1900.PT WAS OBSERVED SITTING UP IN THE RECLINER IN HIS ROOM WATCHING TV.CONDOM CATH PLACED PER PT'S REQUEST.PT DENIED PAIN SO FAR.UP WITH ASSIST X1/GAIT BELT AND A WALKER.GOOD ENDURANCE NOTED.COLOSTOMY WITH SMALL FORMED STOOL.PT RESTING ON HIS BED AT THIS TIME.CALL LIGHT WITHIN REACH.
[2020-10-22 08:13] VITALS: BP 120/77
--- NOTE | 2020-10-22 18:24 | NUR ---
ASSUMED CARE OF PT AT 0715. PT IS A&OX3. IS ON ROOM AIR. DENIES PAIN, BUT REPORTS SORENESS ON HIS BUTTOCKS. HAS HEALING SKIN TEAR. BARRIER CREAM APPLIED. PT IS TURNED Q2H WHEN IN BED. HAS BEEN UP SEVERAL TIMES OUT OF THE RECLINER. IS UP WITH 1 ASSIST, GB, WALKER. REQUIERS EXTRA TIME. FALL PRECAUTIONS & HOURLY ROUNDING CONTINUED THIS SHIFT. LABS & VITALS REVIEWED. PT IS STABLE. IS CURRENTLY IN ROOM IN STAFF FORESTER WITH VISITOR. CALL LIGHT WITHIN REACH. VOIDS PER URINAL WITH ASSIST. COLOSTOMY INTACT. TEDS PLACED THIS AM. WILL CONTINUE TO MONITOR.
[2020-10-22 19:31] VITALS: BP 123/77
--- NOTE | 2020-10-23 00:11 | NUR ---
PT ALERT AND ORIENTED X 4. UP IN RECLINER AT START OF SHIFT. ASSISTED TO BED AT HS WITH ASSIST X 1. PT TOOK HS MEDS CRUSHED IN APPLESAUCE WITHOUT DIFFICULTY. COLOSTOMY INTACT WITH LOOSE BROWN STOOL. CONDOM CATH PLACED AT HS. PT DENIES PAIN OR DISCOMFORT. BED ALARM ON FOR SAFETY. PT APPEARS TO BE SLEEPING ON HOURLY ROUNDS.
[2020-10-23 07:40] VITALS: BP 139/89
--- NOTE | 2020-10-23 08:43 | NUR ---
OSTOMY CARE; ALERT, COOPERATIVE, CHANGED OSTOMY POUCH W/ AKIL CUT TO FIT APPLIANCE, STOMA PINK VIABLE BUDDED, ADAPT RING APPLIED UNDER WAFER, LOOSE BROWN STOOL NOTED, PERISTOMAL SKIN INTACT, SUPPLIES AT BS RECOMMENDATIONS CONT CHANGING POUCH Q3-5 DAYS AND PRN, EMPTY PRN, CONT W/ AKIL CUT TO APPLIANCE JOURNEYMAN PRESSMAN AWARE
--- NOTE | 2020-10-23 15:06 | NUR ---
ASSUMED CARE AT 0700. PT IS ALERT AND ORIENTATED, SLOW TO RESPOND. PT COMPLAINED OF L SHOULDER PAIN AND IS TREATED WITH LIDOCAINE PATCH. WOUND CARE CHANGED OSTOMY BAG THIS MORNING WITH MIN STOOL. ATE WELL FOR MEALS AND TOOK MEDS CRUSHED WITH APPLE SAUCE. PARTICIPATED IN THERAPIES. PLAN FOR DISCHARGE ON FRIDAY. FAMILY CAME IN TODAY FOR TRAINING.
[2020-10-23 19:48] VITALS: BP 108/62
--- NOTE | 2020-10-23 23:57 | NUR ---
PT ALERT AND ORIENTED X 4. COLOSTOMY INTACT WITH BROWN STOOL. CONDOM CATH PLACED AT HS. DRAINING CLEAR JOCELYNE URINE. PT TAKES MEDS CRUSHED IN APPLESAUCE WITHOUT DIFFICULTY. PT DENIES PAIN OR DISCOMFORT. BED ALARM ON FOR SAFETY. PT CHECKED ON HOURLY ROUNDS.
[2020-10-24 05:00] LABS: ABSOLUTE NEUTROPHILS 2.6 thou/uL (1.4-8.2); BASOPHILS 0.6 % (0.0-2.0); EOSINOPHILS 0.5 % (0.0-3.0); HEMATOCRIT 35.8 % (42.0-52.0); HEMOGLOBIN 11.6 gm/dL (14.0-18.0); LYMPHOCYTES 22.1 % (24.0-44.0); MCH 28.7 pg (26.0-34.0); MCHC 32.5 g/dL (28.0-37.0); MCV 88.2 fL (80.0-100.0); MONOCYTES 10.6 % (1.0-8.0); PLATELET COUNT 109 thou/uL (150-400); POLYS 66.2 % (36.0-66.0); RBC 4.05 mil/uL (4.50-6.00); RDW 16.5 % (10.5-14.5); WBC 3.9 thou/uL (4.0-11.0)
[2020-10-24 05:36] LABS: CALCIUM 9.5 mg/dL (8.5-10.1); CREATININE 0.8 mg/dL (0.7-1.3); MAGNESIUM 1.7 mg/dL (1.8-2.4); POTASSIUM 3.9 mmol/L (3.5-5.1)
[2020-10-24 08:00] VITALS: BP 127/77
--- NOTE | 2020-10-24 11:03 | NUR ---
Nutrition: pt continues on rehab unit with Parkinsons, hx met colon CA, colostomy earlier this year. Continues on mechanically altered ground diet with ST following. Eating 100% of most meals and 100% ensure BID. Supplements not needed with excellent intake of meals. Pt agrees-will D/C. On vitamin D supplement. Weight in September#. Some higher weights suspected error. Current 199#. Follow trends. Low nutrition risk.
--- NOTE | 2020-10-24 13:30 | NUR ---
Sitting in chair most of day. Orientated X3, flat affect. No s/o distress. Breath sounds clear, bilaterally equal. Reg HR auscultated. Color pale pink with brisk capillary refill and palpable peripheral pulses. BRENDA hose placed at about 1315. Minimal edema, legs elevated. Condom cathetar off this am with small amt yellow urine. Active bowel sounds over soft, rounded abdoment.
--- NOTE | 2020-10-24 13:35 | NUR ---
team meeting, reccomendation: [facility] soft, ground meat, no mix const. close supervison and assist with bills and pills. dc 11th with family. cont working on stairs and endurance.
[2020-10-24 19:59] VITALS: BP 101/67
--- NOTE | 2020-10-25 06:42 | NUR ---
INCONTINENT, TURNED Q 2 HOURS, Z-GUARD APPLIED TO SACRUM 3 TIMES THIS SHIFT. COLOSTOMY PATENT. TAKING SIPS OF COLD WATER MORE THAN HE HAS BEEN ON PREVIOUS NIGHTS.
[2020-10-25 07:21] VITALS: BP 117/73
--- NOTE | 2020-10-25 16:49 | NUR ---
PATIENT IS ALERT, AND ORIENTED X 3-4 ABLE TO VOICE NEED, SPEECH IS SLOW, HARD TO UNSTAND AT TIMES. LUNGS CLEAR TO AUSCULTATION IN ALL LOBE, BS+X4, ABD SOFT, NON-TENDER TO TOUCH. PATIENT IS EATING MEALS, AND DRINKING FLUID WELL. MEDS GIVEN CRUSHED IN APPLESOURCE, WELL TELERATED. PATIENT AMBULATES WITH ASSIST OF ROLLER WALKER, GAIT SLIGHTLY UNSTEADY, REQUIRES STANDBY ASSIST X 1. PATIENT VOIDING WITHOUT DIFFICULTY. COLOSTOMY CARE PER STAFF. PATIENT DENIES PHYSICAL PAIN AT THIS TIME. MOOD IS DEPRESSED, AFFECT IS FLAT. NO SIGN OF ACUTE DISTRESS NOTED AT THIS TIME, SAFETY PRECAUTION OBSERVED, CALL LIGHT IN PLACE, WILL MONITOR FOR SAFETY.
[2020-10-25 19:50] VITALS: BP 114/71
--- NOTE | 2020-10-26 03:19 | NUR ---
ASSUMED CARE OF PT AT 1900. RECEIVED PT AWAKE IN RECLINER. PT IS A/O X4 AND IS UP WITH ASSISTANCE X1 WITH WALKER AND GB. MINIMAL ASSISTANCE. SPEECH IS SLOW AND DIFFICULT TO UNDERSTAND PT SPEAKS SOFTLY. MEDICATIONS GIVEN CRUSHED IN APPLE SAUCE. TOLERATED WELL. DENIES ANY C/O PAIN OR DISCOMFORT. MALE EXTERNAL CATHETER IN PLACE.SCD'S AND BRENDA HOSE IN PLACE ON BILAT LE. VSS. FALL PRECAUTIONS ARE IN PLACE, CALL LIGHT IS WITHIN REACH. WILL CONTINUE TO MONITOR. AT THIS TIME PT IS LYING IN HIS BED WITH HOB AND FEET ELEVATED AND APPEARS TO BE SLEEPING.
[2020-10-26 08:00] VITALS: BP 150/86
--- NOTE | 2020-10-26 09:30 | NUR ---
OSTOMY CARE; POUCH ON 4 DAYS, LOOSE EDGES, CHANGED USING 2 PIECE SYSTEM AKIL CUT TO FIT, STOMA PINK VIABLE BUDDED W/ SOFT BROWN STOOL. PERISTOMAL SKIN INTACT, PT ALERT, COOPERATIVE, SUPPLIES LEFT AT BS RECOMMENDATIONS; CONT AKIL CUT TO FIT APPLIANCE, CHANGE Q4-5 DAYS, EMPTY PRN MANAGER NURSING HOME AWARE
--- NOTE | 2020-10-26 14:39 | NUR ---
ASSUMED CARES AT 0700. PT AWAKE, ALERT AND ORIENTED*4. SOFT SPOKEN AND HAS DELAYED RESPONSES NOTED. HR ELEVATED THIS AM, ALL OTHER VITALS REMAIN STABLE. PT C/O LEFT SHOULDER PAIN, LIDOCAINE PATCH PLACED ON LEFT SHOULDER. COLOSTOMY REMAINS INTACT AND PATENT, STOOL IS LIGHT YELLOW AND A SMALL AMOUNT OF BLOOD NOTED ALONG THE INCISION. PT REMAINS MODIFIED INDEPENDENT IN THE ROOM AND TOLERATED WELL. PT PARTICIPATED WELL IN THERAPY AND TOLERATED WELL. Q1H VISUAL CHECKS. CALL LIGHT WITHIN REACH. FALL PRECAUTIONS IN PLACE
[2020-10-26 19:35] VITALS: BP 110/69
--- NOTE | 2020-10-26 23:52 | NUR ---
ASSUMED CARE OF PT AT 1915. PT IS A&OX3. IS ON ROOM AIR. IS STABLE. REPORTS PAIN IN LEFT SHOULDER THAT IS BEING MANAGED WITH PAIN MEDS & OTHER THERAPUETIC TECHNIQUES. PT IS UP MOD I IN ROOM. HOURLY ROUNDING CONTINUED THIS SHIFT. LABS & VITALS REVIEWED. WILL CONTINUE TO MONITOR.
[2020-10-27 08:00] VITALS: BP 130/82
[2020-10-27] MEDS ORDERED: VITAMIN D325 MC1 PO (08:21)
[2020-10-27] MEDS ORDERED: LIDOPATCH1 EACH TRANSDERM (08:21)
[2020-10-27] MEDS ORDERED: PEPCID20 MG PO (08:21)
[2020-10-27] MEDS ORDERED: FLORANEX GRANU1 EACH PO (08:21)
[2020-10-27] MEDS ORDERED: METHIMAZOLE5 MG PO (08:22)
[2020-10-27 09:24] VITALS: BP 130/82
--- NOTE | 2020-10-27 09:25 | NUR ---
[facility] home today. son will pick him up. home family to assist with pills and bills. no dme need, dc no needs.
--- NOTE | 2020-10-27 14:26 | NUR ---
ASSUMED CARES AT 0700. PT AWAKE, ALERT AND ORIENTED*4. C/O MILD LEFT SHOULDER PAIN, LIDOCAINE PATCH APPLIED. VITALS REMAIN STABLE. SACRAL WOUND CLEANED AND BARRIER CREAM APPLIED. COLOSTOMY EMPTIED AND BAG CHANGED NEEDED, STOOL IS LIGHT BROWN AND SOFT, NO BLOOD NOTED. BLE ELEVATED AND TEDHOSE IN PLACE. PT IS MOD INDEPENDENT IN THE ROOM AND TOLERATED WELL. PT TO DC THIS AFTERNOON WITH SON. PT TEACHING AND INSTRUCTION TO BE COMPLETED AT THE BEDSIDE. Q1H VISUAL CHECKS. CALL LIGHT WITHIN REACH. FALL PRECAUTIONS IN PLACE
--- NOTE | 2020-10-30 21:05 | HC ---
[facility] [place] [address] CONSULTATION Name: GABY BRENNAN Room #: 510-P [facility] IN M.R.#: [id number] Admission: 10/16/20 Attend Phys: Antoine Mata MD Discharge: 10/27/20 Date of : 58 Report #: [id number] THIS REPORT FOR: cc: FAM - Family physician unknown FAM - Family physician unknown Wilfrid Mensah PhD ~ DATE OF SERVICE: 10/21/2020 NEUROBEHAVIORAL STATUS EXAM AGE: 60. ATTENDING PHYSICIAN: Dr. Antoine Mata LOCKSMITH: Wilfrid Mensah, PhD CLINICAL PRESENTATION: The patient is a 60-year-old male with a history of colon cancer stage 4 and that was diagnosed in December. The patient has undergone a colectomy with colostomy and started on chemotherapy. Additionally, he carries a diagnosis of Parkinson's disease and is on Sinemet with significant bradykinesia and complements. Functional deficits associated with Parkinson's disease are reported. His assessment on admission to the rehabilitation unit is his Parkinson's disease, lactic acidosis with dehydration, dysphagia, stage 4 colon cancer with colostomy, thrombocytopenia and left shoulder pain with limited range of motion. A complete description of his medical condition and history can be found in his medical record. Neuropsychological consultation was requested to provide assistance in the assessment of cognitive and emotional status and to provide recommendations and services. Prior to this most recent admission, the patient reports having been living with his sister. He had assisted with instrumental activities of daily living that included showering. 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 The patient is a high school graduate. He reports having had 2 children. His him in 2008. The patient indicates a history of alcoholism in his father. He does not report a prior history of treatment for depression or anxiety. The patient indicates having discontinued driving about 10-11 years ago from Parkinsonian symptoms. TECHNIQUES UTILIZED: Clinical interview, review of medical records, staff consultation and behavioral observation, mini mental status exam 2 standard version and clock drawing. [facility] [address] [place] [address] CONSULTATION Name: GABY BRENNAN Room #: 510-P [facility] IN [facility].#: [id number] Admission: 10/16/20 Attend Phys: Antoine Mata MD Discharge: 10/27/20 Date of : 58 Report #: [id number] EXAMINATION FINDINGS: The patient was alert and cooperative with the assessment. He was vague in his description, the reason for his hospitalization. He reports it is related to medication. He describes his symptoms to include primarily sleep disorder. He presents with a severe bradykinesia. He does not report difficulty with anxiety, depression, appetite or cognitive functioning. Decreased insight is suggested. His performance on the mini mental status exam 2 brief version is within normal limits with a raw score 16/16. He was alert and oriented and showing within normal limits with immediate recall after a brief delay. Performance is impaired on the mini mental status exam 2 standard version with a raw score of 24/30. He was 0/5 for serial sevens, 2/2 for naming, 1/1 for repetition, 3/3 for auditory comprehension. He could read and follow a single command and write a sentence. The patient was unable to accurately copy a simple geometric design. Clock drawing was impaired for hand placement, suggesting visual spatial as well as executive functioning deficits. The patient is presenting with neurocognitive changes, often seen with Parkinson's disease. The extent of supervision help was needed indicating moderate level of impairment. However, he is alert and oriented, but fairly well maintained verbally mediated levels of functioning. 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 RECOMMENDATIONS: The patient lacks insight into his deficits, which places him at an increased safety risk. Indicated is support and assistance available in the home, for medication, financial and nutritional managment. Increased educational information for his family and care givers to assist with problem solving and improve responsiveness to identified areas of poor functioning. Thank you very much for allowing me to provide the consultation on this patient. <ELECTRONICALLY SIGNED> By: Wilfrid Mensah, PhD 10/30/20 [id number] Wilfrid Mensah, PhD /nt
--- NOTE | 2020-10-31 17:12 | HC ---
[facility] [place] [address] CONSULTATION Name: GABY BRENNAN Room #: 510-P [facility] IN M.R.#: [id number] Admission: 10/16/20 Attend Phys: Antoine Mata MD Discharge: 10/27/20 Date of : 58 Report #: [id number] THIS REPORT FOR: cc: FAM - Family physician unknown FAM - Family physician unknown Deniz Antony MD ~ DATE OF SERVICE: 10/17/2020 CHIEF COMPLAINT: Gluteal sacral ulceration. HISTORY OF PRESENT ILLNESS: This is a 60-year-old male patient who presented to the hospital from his home on 10/10. He had fever, chills, nausea and lethargy. He was known to have stage 4 colon cancer. He had a colectomy and colostomy placed and since then started on chemotherapy. He is being admitted to the rehab unit here due to severe debility. PAST MEDICAL HISTORY: Positive for history of stage 4 cancer. He is status post colectomy and colostomy as well as Parkinson's disease. MEDICATIONS: Include hydrocodone, carbidopa/levodopa, ondansetron, Stivarga and metoprolol. ALLERGIES: No known drug allergies. SOCIAL HISTORY: Negative for alcohol or tobacco use. FAMILY HISTORY: Noncontributory. REVIEW OF SYSTEMS: CONSTITUTIONAL: The patient denies fever, chills or weight loss. ENT: The patient denies earache, nasal drainage or sore throat. CARDIOVASCULAR: The patient denies chest pain, palpitations or diaphoresis. PULMONARY: The patient denies cough or shortness of breath. GASTROINTESTINAL: Mild nausea. Denies significant abdominal pain. He is aware of colostomy. Other systems in a 14-point review of systems are negative. PHYSICAL EXAMINATION: VITAL SIGNS: At this time include temperature 36.6, pulse 87, respiratory rate 18, blood pressure 127/71. GENERAL: This is a somewhat chronically ill-appearing male patient who appears to be in no distress. HEENT: Head normocephalic. Nose and throat clear. NECK: Supple. LUNGS: Diminished. [facility] [address] [place] [address] CONSULTATION Name: ANUGABY Kellie Room #: 510-P [facility] IN M.R.#: [id number] Admission: 10/16/20 Attend Phys: Antoine Mata MD Discharge: 10/27/20 Date of : 58 Report #: [id number] HEART: Regular rhythm. ABDOMEN: Soft. Colostomy appears to be functioning. Sacral gluteal region appears to have moisture-associated skin damage. No evidence of obvious pressure ulceration. EXTREMITIES: Lower extremities show trace edema. NEUROLOGIC: The patient is alert, does move all 4 extremities spontaneously. CLINICAL IMPRESSION: 1. MASD to the sacrogluteal region. 2. History of Parkinson's disease. 3. Stage IV colon cancer, status post colostomy. 4. Generalized debility. RECOMMENDATIONS: At this point in time, recommend low air loss mattress with q. 2 hour turning and repositioning, moisture barrier cream and otherwise open to air b.i.d. and p.r.n. to the affected area on his gluteal region. He will need ongoing hospitalist management. Continue to monitor the ostomy site for skin integrity and change the appliance twice per week. He will need ongoing nutritional support. I appreciate being asked to see him in consultation. <ELECTRONICALLY SIGNED> By: Deniz Antony MD 10/31/20 1712 [id number] 20 Deniz Antony MD /nt
== END 2020-10-27 15:55 | disposition home health service (06) | DRG 57 ==
PROVIDERS: Internal Medicine; Nurse Practitioner; Nurse Practitioner Family; ADMIT Physical Medicine & Rehabilitation; ATTEND Physical Medicine & Rehabilitation
DX: G20 Parkinson's disease (principal); E87.2 Acidosis; C18.9 Malignant neoplasm of colon, unspecified; E86.0 Dehydration; R13.10 Dysphagia, unspecified; D69.6 Thrombocytopenia, unspecified; Z93.3 Colostomy status; F01.50 Vascular dementia, unspecified severity, without behavioral disturbance, psychotic disturbance, mood disturbance, and anxiety; R53.81 Other malaise; E21.3 Hyperparathyroidism, unspecified; D63.8 Anemia in other chronic diseases classified elsewhere; R19.7 Diarrhea, unspecified; Z20.828 Contact with and (suspected) exposure to other viral communicable diseases
CPT/HCPCS: 10112